=== PATIENT | female | born 1980 ===

== ENCOUNTER 2023-08-13 07:45 | Inpatient (IN) | payer OTHER ==
[~2023-08-13] VITALS: Ht 152.4 cm; Wt 54.4 kg
[2023-08-13 08:58] LABS: PH,URINE 6.5 (5.0-8.0); URINE APPEARANCE Clear; URINE BILIRRUBIN Negative (NEGATIVE); URINE BLOOD Negative; URINE COLOR Yellow; URINE GLUCOSE Negative (NEGATIVE); URINE LEUKOCYTE Negative; URINE NITRATE Negative; URINE PROTEIN Negative (NEGATIVE); URINE UROBILINOGEN 0.2 E.U./dl
[2023-08-13 09:03] LABS: URINE BACTERIA 59.1 uL (0.0-1933); URINE EPITHELIAL CELLS 14.7 uL (0.0-38.8); URINE RBC 2.1 uL (0.0-20.8)
[2023-08-13 09:11] LABS: URINE WBC 0.9 uL (0.0-23.2)
[2023-08-13 09:31] LABS: CALCIUM 9.3 mg/dL (8.5-10.1); CREATININE SERUM 0.7 mg/dL (0.55-1.02); GFR 92.68; POTASSIUM 4.86 mEq/L (3.5-5.1)
[2023-08-23] MEDS ORDERED: CYCLOBENZAPRINE5 MG PO (15:39)
[2023-08-23] MEDS ORDERED: LEVOTHYROXINE88 MCG PO (15:39)
[2023-08-23] MEDS ORDERED: TRAMADOL HCL50 MG PO (15:39)
[2023-08-23] MEDS ORDERED: Rocaltrol PO (15:39)
== END 2023-08-23 13:31 | disposition home or self-care (01) | DRG 627 ==
LOC: SURH 08-14 07:00 → O/R 08-22 05:33 → SURH 08-22 07:45
PROVIDERS: ADMIT Surgery; ATTEND Surgery
PROC: 07T20ZZ Resection of Left Neck Lymphatic, Open Approach (ICD-10-PCS; 2023-08-22)
PROC: 07T10ZZ Resection of Right Neck Lymphatic, Open Approach (ICD-10-PCS; 2023-08-22)
PROC: 0GSL0ZZ Reposition Right Superior Parathyroid Gland, Open Approach (ICD-10-PCS; 2023-08-22)
PROC: 0GTH0ZZ Resection of Right Thyroid Gland Lobe, Open Approach (ICD-10-PCS; principal; 2023-08-22 09:30)
DX: C73 Malignant neoplasm of thyroid gland (principal); Z20.822 Contact with and (suspected) exposure to COVID-19

== ENCOUNTER 2023-08-13 10:19 | Outpatient (CLI) | payer OTHER | END 2023-08-13 10:36 | disposition home or self-care (01) | LOC: SONOGRAMA 10:19 | PROVIDERS: ATTEND Surgery | DX: C73 Malignant neoplasm of thyroid gland (principal) ==